=== PATIENT | male | born 1990 | race Caucasian/White ===

== ENCOUNTER 2024-03-07 01:28 | Emergency (ER) | payer OTHER, SELFPAY ==
[2024-03-07] VITALS (20 sets, daily range): BP systolic 138–171; BP diastolic 91–111; PULSE 65–93; RESP 20; TEMP 36.5; O2SAT 94–99; BMI 24.0
--- NOTE | 2024-03-07 01:40 | ED.CHESTPAIN ---
HPI - Chest Pain General Time Seen by Provider: 01:40 Date Seen: 03/07/24 Chief Complaint: Chest Pain Stated Complaint: having heart issues Time Seen by Provider: 03/07/24 01:29 Source: patient History of Present Illness HPI narrative: This 33-year-old male is ambulatory into the ED of his own accord with complaint of left chest pain. He points with his hand along the left lower anterior chest wall, states it hurts in that area. He was attempting to go to sleep, pain kept him up, started about an hour to maybe upwards of an hour and a half ago. He has not been sick with anything, no cough or cold symptoms. It does hurt with breathing. Does feel little better sitting up. He has no prior cardiac issues. He reports his dad did of a cardiomyopathy condition in his later 30s. Patient states he has never been studied. He initially was thinking that this was heartburn but is heartburn is never felt like this. He has no current GI symptoms with this. He has had no recent fevers or chills. There has been no chest wall trauma. He states it is a constant pressure, hurts worse with breathing, does make him feel a sense of shortness of breath. He is a smoker. He has never had anything like this before. MD complaint: chest pain Prior episodes: No Related Data Previous Rx's ?Medication ?Instructions ?Recorded ketorolac 10 mg tablet 10 mg PO Q6H PRN pain #20 tabs 03/07/24 Allergies Allergy/AdvReac Type Severity Reaction Status Date / Time No Known Drug Allergies Allergy Verified 03/07/24 01:35 Review of Systems Status of ROS Reports: 6 or more systems reviewed and unremarkable except as noted in History and below PFSH PFS Social History Smoking Status: Current every day smoker What tobacco products do you use: cigarettes Do you use any of these nicotine containing products: None How often do you have a drink containing alcohol: 2-3 times a week AUDIT-C Alcohol total score: 3 Non-prescribed substance use: denies use Exam Const Vital Signs, click to edit/add: Vital Signs - 24 hr 03/07/24 01:35 03/07/24 01:41 Temperature 97.7 F Pulse Rate [Pulse Oximeter] 87 Respiratory Rate 20 Blood Pressure [Right Upper Arm] 171/111 H Pulse Oximetry 99 98 Oxygen Delivery Method Room Air 33-year-old male is seen in exam room 3, he is alert, interactive, no apparent distress. Looks to be uncomfortable. Is able to speak in complete sentences, does were glasses, sclera clear, conjugate gaze, pupils do seem to be equal and round. Symmetrical facial function. Is able to sit up, lungs are clear, good air entry, no wheezing or crackles, no tachypnea. CV regular rate and rhythm, no murmur, normal S1-S2, no S3-S4. No reproducible chest wall pain. Abdomen is soft, no organomegaly, no rebound or guarding. Moving all extremities, was ambulatory into the ED of his own accord. Skin visualized without any rash. Documenting provider has reviewed patient's vital signs: yes Course Course ED Course: This patient is experiencing left sided chest pain with pleuritic component. Nursing staff appropriately obtained an EKG on arrival and I have already reviewed this. There is no acute ischemic change, no evidence of any arrhythmia, nothing to suggest pericarditis on the EKG. Pleurisy is certainly consideration. Will also obtain a D-dimer on this patient looking at phenomenon such is dissection, pulmonary emboli. He will be on cardiac monitoring and pulse oximetry. Will give him Toradol to see if this does help the symptoms. Will have a point of care troponin here shortly, if elevated will initiate aspirin, move towards ACS protocol if elevated obviously. Portable chest x-ray is going to be done as well for consideration pneumothorax. Will consider advanced imaging with CT if needed based on his labs. Reevaluation(s) Time of Reevaluation #1: 02:37 Reevaluation #1: Patient's pain is gone, Toradol has completely resolved this. He still does feel a little short of breath but is still oxygenating at 97% on room air. We reviewed the normal troponin, normal portable chest x-ray. If his D-dimer does come back elevated, he understands that we will be proceeding with chest CT imaging. Do think that pleurisy is certainly a diagnostic possibility, particularly since the Toradol has helped. Vital Signs Vital signs: Initial Vital Signs Temperature 97.7 F 03/07/24 01:35 Temperature Source Temporal Artery Scan 03/07/24 01:35 Pulse Rate 87 03/07/24 01:35 Pulse Rhythm Regular 03/07/24 01:35 Pulse Strength 3+ Normal 03/07/24 01:35 Respiratory Rate 20 03/07/24 01:35 Blood Pressure 171/111 H 03/07/24 01:35 Blood Pressure Mean 131 H 03/07/24 01:35 Blood Pressure Position Sitting 03/07/24 01:35 Pulse Oximetry 99 03/07/24 01:35 Oxygen Delivery Method Room Air 03/07/24 01:35 Vital Signs Temperature 97.7 F 03/07/24 01:35 Pulse Rate 87 03/07/24 01:35 Respiratory Rate 20 03/07/24 01:35 Blood Pressure 171/111 H 03/07/24 01:35 Pulse Oximetry 99 03/07/24 01:35 Oxygen Delivery Method Room Air 03/07/24 01:35 Temperature 97.7 F 03/07/24 01:35 Pulse Rate 87 03/07/24 01:35 Respiratory Rate 20 03/07/24 01:35 Blood Pressure 171/111 H 03/07/24 01:35 Pulse Oximetry 98 03/07/24 01:41 Oxygen Delivery Method Room Air 03/07/24 01:35 Medications Administered Medications: Discontinued Medications Generic Name Dose Route Start Last Admin Trade Name Freq PRN Reason Stop Dose Admin Ketorolac Tromethamine 15 mg 03/07/24 01:48 03/07/24 02:17 Ketorolac 15 Mg/Ml Inj IVP 03/07/24 01:49 15 mg ONCE ONE Administration MDM - Chest Pain Lab Data Attestation: I reviewed the patient's lab results. Labs: Lab Results 03/07/24 03/07/24 03/07/24 Range/Units 01:42 01:55 03:30 WBC 11.49 H (4.50-11.00) K/uL RBC 5.03 (4.30-5.90) m/uL Hgb 14.7 (13.5-17.5) gm/dL Hct 44.7 (37.0-53.0) % MCV 89 (80-100) fL MCH 29 (26-34) pg MCHC 33 (32-36) gm/dL RDW Coeff of Hollis 12.1 (11.5-15.5) % Plt Count 312 (140-440) K/uL Neut % (Auto) 59.4 (42.0-72.0) % Lymph % (Auto) 30.1 (20-44) % [place] % (Auto) 7.6 (0.0-11.0) % Eos % (Auto) 2.2 (0.0-7.0) % Baso % (Auto) 0.3 (0.0-3.0) % Neut # (Auto) 6.80 (1.7-7.0) K/uL Lymph # (Auto) 3.50 H (0.90-2.90) K/uL [place] # (Auto) 0.90 (0.00-0.90) K/UL Eos # (Auto) 0.30 (0.00-0.50) K/uL Baso # (Auto) 0.00 (0.00-0.30) K/uL Abs Immat Gran (auto) 0.00 (0.00-0.30) K/uL Imm/Tot Granulo (auto) 0.4 % D-Dimer Quant (PE/DVT) 0.09 (0.00-0.50) ug/ml VBG pH 7.321 (7.32-7.43) VBG pCO2 50 (40-50) mmHG VBG pO2 < 30.1 (25-47) mmHG VBG HCO3 26 (21-28) mmol/L Sodium 139 (135-149) mmol/L Potassium 4.2 (3.6-5.1) mmol/L Chloride 108 (96-114) mmol/L Carbon Dioxide 24 (20-32) mmol/L Anion Gap 7 (7-15) mEq/L BUN 17 (5-24) mg/dL Creatinine 0.7 (0.5-1.5) mg/dL Estimated Creat Clear 125.68 Estimated GFR 125 ml/min Glucose 103 (60-115) mg/dL Lactate 0.9 (0.5-1.9) mmol/L Calcium 9.4 (8.4-10.6) mg/dL Total Bilirubin 0.4 (0.1-1.5) mg/dL AST 24 (12-35) U/L ALT 21 (4-50) U/L Alkaline Phosphatase 72 (40-150) U/L Total Protein 6.8 (6.0-8.3) g/dL Albumin 4.8 (3.3-5.0) g/dL Lipase 194 (23-300) U/L POC Troponin I 0.00 L 0.00 L (0.01-0.04) ng/ml Imaging Data Chest x-ray: Attestation: I have reviewed the pertinent imaging results. My impression: I do not appreciate any acute cardiopulmonary change, no pneumothorax on my preliminary review of this portable chest x-ray. Radiologist's impression: Patient: ARIE BILLY Facility:?[facility] Patient ID:?[id number] Site Patient ID:?[id number]. Site :?[id number] Study:?XRay-Chest AP PORTABLE-03/07/2024 2:08:44 AM Ordering Physician:?Mary Ann Weinstein Final Report: INDICATION: Chest pain TECHNIQUE: Chest radiograph 1 view COMPARISON: None FINDINGS: Mediastinum: The mediastinum is normal in appearance. The heart silhouette is normal in size and morphology. Lung: Both lungs are unremarkable in appearance. No sign of pleural effusion seen. No pneumothorax is identified. Bone and Soft tissue: Unremarkable for age. IMPRESSION: 1. No acute cardiopulmonary disease is seen. Dictated by: Eduardo Urbano MD @ 03/07/2024 02:09:03 (Electronic Signature) ECG Data Attestation: I personally reviewed and interpreted this ECG as follows: (Normal sinus rhythm, 67 beats per minute. No ischemia or infarct noted. QT corrected 426 milliseconds.) ECG interpretation date: 03/07/24 ECG interpretation time: 01:42 Prior ECG tracings: not available for review Discharge Plan Discharge Clinical Impression: Chest pain Patient Disposition: Home, Self-Care Condition: Stable Instructions: Pleurisy (ED), Noncardiac Chest Pain (ED) Additional Instructions: Can use Toradol per prescription baseline for pain management. Can supplement with Tylenol as needed for additional pain management, follow bottle directions. Pain from pleurisy can last usually around 1 to 2 weeks. Recommend recheck with your primary care provider this week, sooner if concerns. Should you develop increasing pain, have worsening shortness of breath or difficulty breathing, develops fever with her symptoms, do recommend re-evaluation. Activity Level: No Restrictions Discharge Diet: Regular Prescriptions: New ketorolac 10 mg tablet 10 mg PO Q6H PRN (Reason: pain) Qty: 20 0RF Rx Instructions: maximum total duration of 5 days from all oral, intranasal, or parenteral formulations Follow Up/Referrals: Provider,Not a Local [Primary Care Provider] - Stand Alone Forms: [employer] Info Instructions
--- NOTE | 2024-03-07 01:41 | CRLHL7_ITS ---
For Patients: As a result of the Cures Act, medical imaging exams and procedure reports are released immediately into your electronic medical record. You may view this report before your referring provider. If you have questions, please contact your health care provider. INDICATION: Chest pain TECHNIQUE: Chest radiograph 1 view COMPARISON: None FINDINGS: Mediastinum: The mediastinum is normal in appearance. The heart silhouette is normal in size and morphology. Lung: Both lungs are unremarkable in appearance. No sign of pleural effusion seen. No pneumothorax is identified. Bone and Soft tissue: Unremarkable for age. IMPRESSION: 1. No acute cardiopulmonary disease is seen. Dictated by: Eduardo Urbano MD @ 03/07/2024 02:09:03 (Electronically Signed)
[2024-03-07 02:09] LABS: HCO3 VBG 26 mmol/L (21-28); Lactate* 0.9 mmol/L (0.5-1.9); PCO2 VBG 50 mmHG (40-50); PO2 VBG < 30.1 mmHG (25-47); pH VBG 7.321 (7.32-7.43)
[2024-03-07 02:11] LABS: Basophils Percent Auto 0.3 % (0.0-3.0); Eosinophils Percent Auto 2.2 % (0.0-7.0); Hematocrit 44.7 % (37.0-53.0); Hemoglobin* 14.7 gm/dL (13.5-17.5); Immature Granulocytes Pct Auto 0.4 %; Lymphocytes Percent Auto 30.1 % (20-44); Mean Corpuscular HGB Conc 33 gm/dL (32-36); Mean Corpuscular Hemoglobin 29 pg (26-34); Mean Corpuscular Volume 89 fL (80-100); Monocytes Percent Auto 7.6 % (0.0-11.0); Neutrophils Percent Auto 59.4 % (42.0-72.0); Platelet Count* 312 K/uL (140-440); RDW Coefficient of Variation % 12.1 % (11.5-15.5); Red Blood Count 5.03 m/uL (4.30-5.90); White Blood Count* 11.49 K/uL (4.50-11.00)
[2024-03-07] MEDS: KETOROLAC 15 MG/ML inj IVP (02:17)
[2024-03-07 02:20] LABS: Slide Review Reflex No
[2024-03-07 02:33] LABS: Albumin* 4.8 g/dL (3.3-5.0); Chloride* 108 mmol/L (96-114)
[2024-03-07 02:34] LABS: Potassium* 4.2 mmol/L (3.6-5.1); Sodium* 139 mmol/L (135-149)
[2024-03-07 02:36] LABS: Alanine Aminotransferase* 21 U/L (4-50); Alkaline Phosphatase* 72 U/L (40-150); Anion Gap 7 mEq/L (7-15); Aspartate Amino Transferase* 24 U/L (12-35); Bilirubin Total* 0.4 mg/dL (0.1-1.5); Blood Urea Nitrogen* 17 mg/dL (5-24); Carbon Dioxide* 24 mmol/L (20-32); Creatinine* 0.7 mg/dL (0.5-1.5); Est. Creatinine Clearance* 125.68; Estimated Glomerular Filt Rate 125 ml/min; Glucose* 103 mg/dL (60-115); Total Protein* 6.8 g/dL (6.0-8.3)
[2024-03-07 02:37] LABS: Calcium* 9.4 mg/dL (8.4-10.6); Lipase* 194 U/L (23-300)
[2024-03-07 03:07] LABS: D Dimer Quantitative* 0.09 ug/ml (0.00-0.50)
[2024-03-07 10:05] LABS: C Reactive Protein* < 0.5 mg/dL (0.5-1.0)
== END 2024-03-07 04:19 | disposition home or self-care (01) ==
PROVIDERS: Emergency Provider Family Medicine
DX: R07.9 Chest pain, unspecified (principal)
CPT/HCPCS: 36415; 71045; 80053; 82803; 83605; 83690; 84484; 85025; 85379; 86140; 93005; 94761; 96374; 99284; 99285; J1885